=== PATIENT | female | born 1975 | race Caucasian/White ===

== ENCOUNTER → 2020-10-09 13:22 | Outpatient (CLI) | payer OTHER, SELFPAY ==
--- NOTE | 2020-10-09 13:29 | DI.RAD.S_ITS ---
PROCEDURE: XR CERVICAL SPINE 4V OR 5V INDICATIONS: update imaging TECHNIQUE: 5 views of the cervical spine acquired. COMPARISON: None. FINDINGS: Bones: No fracture. Multilevel degenerative endplate sclerosis and spurring. Diffuse facet arthropathy. Moderate narrowing of the C4-C5 and C5-C6 disc spaces. Reversal of the normal cervical lordosis. On the right, there is moderate C5-C6 bony foraminal stenosis. On the left, diffuse minimal bony foraminal narrowing. Soft tissues: No prevertebral soft tissue swelling. IMPRESSION: Multilevel cervical spondylosis , most pronounced at C4-C5 and C5-C6, and reversal of the normal cervical lordosis. Diffuse facet arthropathy Dictated by: Darwin Arceo M.D. on 10/09/2020 at 14:08 Approved by: Darwin Arceo M.D. on 10/09/2020 at 14:11
== END ==
PROVIDERS: PCP Family Medicine; Referring Provider Physical Medicine & Rehabilitation; Visit Provider Physical Medicine & Rehabilitation
DX: M54.2 Cervicalgia (principal); M47.22 Other spondylosis with radiculopathy, cervical region; M48.02 Spinal stenosis, cervical region; M75.41 Impingement syndrome of right shoulder
CPT/HCPCS: 20611; 72050; J1040

== ENCOUNTER → 2021-02-01 17:34 | Outpatient (CLI) | payer OTHER, SELFPAY ==
--- NOTE | 2021-02-01 | DI.MRI.S_ITS ---
PROCEDURE: MR SHOULDER RT WO CON INDICATIONS: Impingement syndrome of right shoulder TECHNIQUE: Noncontrast oblique coronal T2 fast spin echo with fat saturation, oblique sagittal T1 spin echo and T2 fast spin echo with fat saturation, axial T1 spin echo and T2 fast spin echo with fat saturation through the shoulder. COMPARISON: None. FINDINGS: Image quality: Degraded by body habitus Rotator cuff: There is mild T2 signal elevation throughout the supraspinatus and infraspinatus tendons at the humeral insertion sites, indicating tendinopathy. There is low T2 signal intensity within the mid supraspinatus tendon at the humeral insertion site measuring roughly 8 mm diameter, suggestive of calcific tendinitis. There is low-grade partial-thickness intrasubstance tearing of the anterior and mid infraspinatus tendon at the humeral insertion site extending to the musculotendinous junction. Subscapularis tendon demonstrates low-grade partial-thickness intrasubstance tearing within its inferior aspect extending to the musculotendinous junction. Teres minor is intact. Bones and bursae: No bone marrow contusions or fractures. Moderate acromioclavicular joint degeneration. The acromion demonstrates conventional anatomy, without an os acromiale. No pathologic subacromial-subdeltoid or subcoracoid bursal fluid is present. Capsule and soft tissues: There is undercutting of the posterosuperior labrum with associated paralabral cyst. The long head of the biceps tendon demonstrates normal location and morphology. The rotator interval appears normal, without fibrosis. The coracohumeral ligament is normal in thickness. IMPRESSION: 1. Supraspinatus and infraspinatus tendinopathy. 2. Superimposed low-grade partial-thickness tearing of the infraspinatus. 3. Calcific tendinitis of the supraspinatus tendon. 4. Posterior labral tearing. 5. Acromioclavicular joint osteoarthritis. Dictated by: Yessi Fine M.D. on 02/02/2021 at 10:34 Approved by: Yessi Fine M.D. on 02/02/2021 at 10:37
== END ==
PROVIDERS: PCP Family Medicine; Referring Provider Physical Medicine & Rehabilitation; Visit Provider Physical Medicine & Rehabilitation
DX: M75.91 Shoulder lesion, unspecified, right shoulder (principal); M75.31 Calcific tendinitis of right shoulder; S43.401A Unspecified sprain of right shoulder joint, initial encounter; M19.011 Primary osteoarthritis, right shoulder
CPT/HCPCS: 73221

== ENCOUNTER → 2021-03-12 07:59 | Outpatient (CLI) | payer OTHER, SELFPAY ==
[2021-03-12 11:51] LABS: COVID19 -Nasal RAPID Negative (Negative)
== END ==
PROVIDERS: PCP Family Medicine; Visit Provider Physician Assistant
DX: Z01.812 Encounter for preprocedural laboratory examination (principal); Z20.822 Contact with and (suspected) exposure to COVID-19
CPT/HCPCS: 87635

== ENCOUNTER 2021-03-13 08:42 | Outpatient (CLI) | payer OTHER, SELFPAY ==
[2021-03-13] VITALS (11 sets, daily range): BP systolic 121–139; BP diastolic 72–98; PULSE 71–84; RESP 11–18; TEMP 36.2; O2SAT 96–100
--- NOTE | 2021-03-13 08:44 | DI.RAD.S_ITS ---
PROCEDURE: PAIN C/T INTERLAMINAR INJECT INDICATIONS: CERVICAL RADICULOPATHY COMPARISON: [facility], [place], XR CERVICAL SPINE 4V OR 5V, 10/09/2020, 13:28. FINDINGS: Fluoroscopic spot filming was performed to verify placement of a spinal needle at the C6-C7 level, as labeled on the films. Appropriate location of the needle tip was confirmed by injection of iodinated contrast. IMPRESSION: No significant intraprocedural abnormality. Dictated by: Figueroa Rangel M.D. on 03/13/2021 at 10:14 Approved by: Figueroa Rangel M.D. on 03/13/2021 at 10:14
[2021-03-13] MEDS: fentaNYL 100 MCG/2 ML INJ 50 MCG IV (09:28)
[2021-03-13] MEDS: BUPIVACAINE 0.25% (PF) VIAL 2 ML INJ (09:34)
[2021-03-13] MEDS: IOPAMIDOL 15 ML VIAL 3 ML INJ (09:34)
[2021-03-13] MEDS: DEXAMETHASONE 10 MG/ML VIAL 30 MG INJ (09:35)
[2021-03-13] MEDS: MIDAZOLAM 5 MG/5 ML VIAL IV (09:45)
--- NOTE | 2021-03-13 09:52 | P.PCN_ITS ---
Date/Time/Diagnoses Date of procedure: 03/13/21 Time of procedure: 09:52 Pre-procedure diagnosis: 1. CERVICAL STENOSIS, 2. CERVICAL HNP WITH UPPER EXTREMITY RADICULAR FEATURES Post-procedure diagnosis: same Procedure Notes Procedure: 1. FLUORSCOPICALLY GUIDED CONTRAST CONTROLLED INTERLAMINAR EPIDURAL STEROID INJECTION - C6/7 TL MOE Indications: Nanette is referred by Dr. Bartlett for treatment of Cervical HNP with Upper Extremity Paresthesias. Physician: Venkatesh Reyes Total Fluoroscopy time (seconds): 66 Total sedation minutes: 22 Complications: none Procedure in detail & Post-procedure care: FINDINGS Cervical Stenosis due to disc deterioration and nerve root irritation and nerve root irritation DESCRIPTION OF PROCEDURE Fluoroscopically guided, contrast-controlled C6/7 translaminar epidural steroid injection with conscious sedation. Following review of allergy and review of potential side effects and complications, including, but not necessarily limited to, infection, allergic reaction, local tissue breakdown, temporary as well as permanent nerve injury, stroke, paralysis, and possible , the patient indicated that patient understood and agreed to proceed. An informed consent document was signed by the patient, witnessed by a nurse, and placed in the patient's chart. Additionally, other treatment options including modalities, medications, and physical therapy were reviewed with the patient. After review of previous anaesthesic history and IV conscious sedation the patient was deemed safe to proceed with today?s procedure with IV conscious sedation as ASA class II designation. Safety time-out was performed to confirm patient ID, procedure to be performed and site of procedure. IV sedation was accomplished with a combination of 4mg of Versed and 50mcg of Fentanyl administered by the RN after DO order, titrated to patient comfort during the course of the procedure while the patient remained responsive to all verbal commands. In the prone position, following sterile prep and drape of the cervical region, the C6/7 translaminar space was identified fluoroscopically. The skin was anesthetized via a 25-gauge 1.5-inch needle with 1% lidocaine solution. At this point, a 25-gauge, 2.5-inch short bevel spinal needle was atraumatically introduced and advanced under fluoroscopic guidance into epidural space at the C6/7 translaminar space. Depth was confirmed on lateral view. Radiological data, including multiple fluoroscopic views of the cervical spine, reveal a spinal needle at the C6/7 translaminar space. Lateral views then show placement of the needle in the epidural space. Subsequent views show contrast material flowing superiorly and inferiorly in the epidural space. DSA fluoroscopy with live contrast injection, once again, confirmed no vascular or intrathecal uptake. At this point, using loss of resistance technique with saline and air, the epidural space was entered. Following negative aspiration, injection of appro ximately 1.5 cc of [id number] with live fluoroscopy in the AP view confirmed epidural flow in the epidural space without vascular or intrathecal uptake observed. Subsequently, a test dose of 1 cc of 1% lidocaine solution was injected and patient was observed for two minutes without signs or symptoms of complications, including abdominal pain, shortness of breath, bilateral upper or lower extremity weakness, nausea and vomiting, prior to steroid injection. At this point, 3cc or 30mg of dexamethasone was then injected without incident. The patient tolerated the procedure well without signs or symptoms of complications prior to being transferred to the recovery area for further monitoring, The patient was then transferred to the recovery area where they were observed for an appropriate period of time after the injection. The patient reported a VAS score of 6 prior to the procedure and a post-procedure VAS of 0. POST OP INSTRUCTIONS The patient was provided a Pain Log to continue to record their response to the target-specific procedure prior to follow-up visit with the referring provider. Additionally, specific post-injection care instructions and a contact number to our office were provided if concerns arise regarding possible complications associated with the procedure are suspected.
== END 2021-03-13 10:20 | disposition home or self-care (01) ==
LOC: RAD 08:43
PROVIDERS: PCP Family Medicine; Referring Provider Family Medicine; Visit Provider Physical Medicine & Rehabilitation
DX: M50.123 Cervical disc disorder at C6-C7 level with radiculopathy (principal); M48.02 Spinal stenosis, cervical region
CPT/HCPCS: 62321; 99152; J1100; J2250; J3010